=== PATIENT | female | born 1955 | race African-American/Black ===

== ENCOUNTER 2019-06-17 07:57 | Emergency (ER) | payer OTHER ==
--- OUTSIDE RECORDS SUMMARY | 2019-06-17 07:59 | XMS REPORT ---
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
[2019-06-17] MEDS ORDERED: HYDROCODONE/APAP 7.5/325 MG TAB ONE (08:29)
--- NOTE | 2019-06-17 10:57 | ER ---
Nurse's Notes [facility] Name: Sammi Lakhani Age: 64 yrs Sex: Female : 1955 Arrival Date: 06/17/2019 Time: 08:00 Bed 7 Private MD: Kylie Fuentes Diagnosis: Pain in left knee Presentation: 06/17 08:02 Presenting complaint: Patient states: "I hurt my left leg last night around 8pm moving aa5 the bleachers in the gym at my work". Pt reports she works at the [employer]. Pt c/o pain to posterior aspect of left knee. 08:02 Transition of care: patient was not received from another setting of care. Onset of aa5 symptoms was June 16, 2019. Risk Assessment: Do you want to hurt yourself or someone else? Patient reports no desire to harm self or others. Initial Sepsis Screen: Does the patient meet any 2 criteria? No. Patient's initial sepsis screen is negative. Does the patient have a suspected source of infection? No. Patient's initial sepsis screen is negative. Care prior to arrival: None. 08:02 Acuity: PIPE 4 aa5 08:02 Method Of Arrival: Wheelchair aa5 Historical: - Allergies: 08:02 No Known Allergies; aa5 - Home Meds: 08:02 None [Active]; aa5 - PMHx: 08:02 None; aa5 - PSHx: 08:02 cyst removed; aa5 - Immunization history:: Flu vaccine is up to date. - Coronavirus screen:: The patient has NOT traveled to [place], [place], or [place] in the past 14 days. The patient has NOT had contact with known/suspected case of Coronavirus?. - Social history:: Smoking status: Patient denies any tobacco usage or history of. - Ebola Screening: : No symptoms or risks identified at this time. Screenin:02 Abuse screen: Denies threats or abuse. Nutritional screening: No deficits noted. tw2 Tuberculosis screening: No symptoms or risk factors identified. Fall Risk None identified. Assessment: 08:05 General: Appears in no apparent distress. slender, well groomed, Behavior is calm, tw2 cooperative, appropriate for age. Pain:. 08:05 Neuro: Level of Consciousness is awake, alert, obeys commands, Oriented to person, tw2 place, time, situation. Cardiovascular: Patient's skin is warm and dry. Respiratory: Airway is patent Respiratory effort is even, unlabored, Respiratory pattern is regular, symmetrical, Breath sounds are clear bilaterally. 08:05 GI: No signs and/or symptoms were reported involving the gastrointestinal system. : tw2 No signs and/or symptoms were reported regarding the genitourinary system. EENT: No signs and/or symptoms were reported regarding the EENT system. Derm: No signs and/or symptoms reported regarding the dermatologic system. Musculoskeletal: Reports pain in left leg. 08:34 Reassessment: xray at bedside at this time. tw2 09:13 Reassessment: Patient appears in no apparent distress at this time. No changes from tw2 previously documented assessment. Patient and/or family updated on plan of care and expected duration. Pain level reassessed. Patient is alert, oriented x 3, equal unlabored respirations, skin warm/dry/pink. 11:38 Reassessment: Patient appears in no apparent distress at this time. No changes from tw2 previously documented assessment. Patient and/or family updated on plan of care and expected duration. Pain level reassessed. Patient is alert, oriented x 3, equal unlabored respirations, skin warm/dry/pink. Vital Signs: 08:10 BP 133 / 80; Pulse 82; Resp 16 S; Temp 97.9(TE); Pulse Ox 99% on R/A; Weight 76.2 kg aa5 (R); Height 5 ft. 6 in. (167.64 cm) (R); Pain 8/10; 09:13 BP 131 / 75; Pulse 51; Resp 17; Pulse Ox 98% on R/A; tw2 10:14 BP 109 / 70; Pulse 49; Resp 17; Pulse Ox 98% on R/A; tw2 08:10 Body Mass Index 27.12 (76.20 kg, 167.64 cm) aa5 ED Course: 08:00 Patient arrived in ED. mr 08:00 Kylie Fuentes MD is Private Physician. mr 08:02 Arm band placed on. aa5 08:03 Bed in low position. Adult w/ patient. tw2 08:05 [facility]C [facility]. snw 08:05 Tawanda Jones MD is Attending Physician. snw 08:12 Triage completed. aa5 08:15 Waleska Mares, RN is Primary Nurse. tw2 08:40 Ultrasound completed. Patient tolerated well. sg3 08:45 Knee Right 3 View XRAY In Process Unspecified. EDMS 09:08 US Extremity Venous Unilateral Ltd In Process Unspecified. EDMS 10:56 Shashank Cormier MD is Referral Physician. snw 11:38 No provider procedures requiring assistance completed. Patient did not have IV access tw2 during this emergency room visit. Administered Medications: 08:29 Drug: Corinne (7.5 mg-325 mg) 1 tabs {Note: rass 0.} Route: PO; tw2 11:00 Follow up: Response: No adverse reaction; Pain is unchanged, physician notified; RASS: tw2 Alert and Calm (0) Outcome: 10:56 Discharge ordered by . snw 11:38 Discharged to home via wheelchair, with family. tw2 11:38 Condition: stable 11:38 Discharge instructions given to patient, family, Instructed on discharge instructions, follow up and referral plans. no drinking with medication, no driving heavy equipment, medication usage, safety practices, Demonstrated understanding of instructions, follow-up care, medications, Prescriptions given X 1. 11:38 Patient left the ED. tw2 Signatures: Dispatcher [employer] EDWI Nayely Larry, CAMPAIGN DEVELOPER-C CAMPAIGN DEVELOPER-Csnw Keyanna Souza, Yumiko RN RN aa5 Waleska Mares, RN RN tw2 Sandi Herrmann sg3 Corrections: (The following items were deleted from the chart) 08:37 08:05 General: Appears in no apparent distress. slender, well groomed, Behavior is tw2 calm, cooperative, appropriate for age, tw2
--- NOTE | 2019-06-17 10:57 | EDPHYS ---
Physician Documentation [facility] Name: Sammi Lakhani Age: 64 yrs Sex: Female : 1955 Arrival Date: 06/17/2019 Time: 08:00 Bed 7 Private MD: Kylie Fuentes ED Physician Tawanda Jones HPI: 06/17 09:15 This 64 yrs old Black Female presents to ER via Wheelchair with complaints of Leg Pain. snw 09:15 The patient presents with decreased range of motion, an injury, pain, swelling, snw tenderness. The complaints affect the posterior aspect of left knee. Context: The problem was sustained at work, resulted from possible hyperextension, the patient can partially bear weight, Problem is a result from a previous injury: No. Onset: The symptoms/episode began/occurred suddenly, yesterday. Associated signs and symptoms: The patient has no apparent associated signs or symptoms. Treatment prior to arrival includes: icing the affected extremity, applying pressure to the affected area. Severity of symptoms: At their worst the symptoms were moderate, severe. The patient has not experienced similar symptoms in the past. The patient has not recently seen a physician. Historical: - Allergies: 08:02 No Known Allergies; aa5 - Home Meds: 08:02 None [Active]; aa5 - PMHx: 08:02 None; aa5 - PSHx: 08:02 cyst removed; aa5 - Immunization history:: Flu vaccine is up to date. - Coronavirus screen:: The patient has NOT traveled to [place], [place], or [place] in the past 14 days. The patient has NOT had contact with known/suspected case of Coronavirus?. - Social history:: Smoking status: Patient denies any tobacco usage or history of. - Ebola Screening: : No symptoms or risks identified at this time. ROS: 09:14 Constitutional: Negative for fever, chills, and weight loss, Eyes: Negative for injury, snw pain, redness, and discharge, ENT: Negative for injury, pain, and discharge, Neck: Negative for injury, pain, and swelling, Cardiovascular: Negative for chest pain, palpitations, and edema, Respiratory: Negative for shortness of breath, cough, wheezing, and pleuritic chest pain, Abdomen/GI: Negative for abdominal pain, nausea, vomiting, diarrhea, and constipation, Back: Negative for injury and pain, : Negative for injury, bleeding, discharge, and swelling, Skin: Negative for injury, rash, and discoloration, Neuro: Negative for headache, weakness, numbness, tingling, and seizure. 09:14 MS/extremity: Positive for decreased range of motion, pain, swelling, tenderness, of the left leg. Exam: 09:13 Constitutional: This is a well developed, well nourished patient who is awake, alert, snw and in no acute distress. Head/Face: Normocephalic, atraumatic. Eyes: Pupils equal round and reactive to light, extra-ocular motions intact. Lids and lashes normal. Conjunctiva and sclera are non-icteric and not injected. Cornea within normal limits. Periorbital areas with no swelling, redness, or edema. ENT: Nares patent. No nasal discharge, no septal abnormalities noted. Tympanic membranes are normal and external auditory canals are clear. Oropharynx with no redness, swelling, or masses, exudates, or evidence of obstruction, uvula midline. Mucous membranes moist. Neck: Trachea midline, no thyromegaly or masses palpated, and no cervical lymphadenopathy. Supple, full range of motion without nuchal rigidity, or vertebral point tenderness. No Meningismus. Chest/axilla: Normal chest wall appearance and motion. Nontender with no deformity. No lesions are appreciated. Cardiovascular: Regular rate and rhythm with a normal S1 and S2. No gallops, murmurs, or rubs. Normal PMI, no JVD. No pulse deficits. Respiratory: Lungs have equal breath sounds bilaterally, clear to auscultation and percussion. No rales, rhonchi or wheezes noted. No increased work of breathing, no retractions or nasal flaring. Abdomen/GI: Soft, non-tender, with normal bowel sounds. No distension or tympany. No guarding or rebound. No evidence of tenderness throughout. Back: No spinal tenderness. No costovertebral tenderness. Full range of motion. Skin: Warm, dry with normal turgor. Normal color with no rashes, no lesions, and no evidence of cellulitis. Neuro: Awake and alert, GCS 15, oriented to person, place, time, and situation. Cranial nerves II-XII grossly intact. Motor strength 5/5 in all extremities. Sensory grossly intact. Cerebellar exam normal. Normal gait. Psych: Awake, alert, with orientation to person, place and time. Behavior, mood, and affect are within normal limits. 09:13 Musculoskeletal/extremity: ROM: limited active range of motion due to pain, limited passive range of motion due to pain, Circulation is intact in all extremities. Sensation intact. left knee. Vital Signs: 08:10 BP 133 / 80; Pulse 82; Resp 16 S; Temp 97.9(TE); Pulse Ox 99% on R/A; Weight 76.2 kg aa5 (R); Height 5 ft. 6 in. (167.64 cm) (R); Pain 8/10; 09:13 BP 131 / 75; Pulse 51; Resp 17; Pulse Ox 98% on R/A; tw2 10:14 BP 109 / 70; Pulse 49; Resp 17; Pulse Ox 98% on R/A; tw2 08:10 Body Mass Index 27.12 (76.20 kg, 167.64 cm) aa5 MDM: 08:14 Patient medically screened. snw 11:00 Data reviewed: vital signs, nurses notes. Data interpreted: Pulse oximetry: on room air snw is 98 %. Interpretation: normal. Counseling: I had a detailed discussion with the patient and/or guardian regarding: the historical points, exam findings, and any diagnostic results supporting the discharge/admit diagnosis, radiology results, the need for outpatient follow up, to return to the emergency department if symptoms worsen or persist or if there are any questions or concerns that arise at home. Special discussion: Based on the history and exam findings, there is no indication for further emergent testing or inpatient evaluation. I discussed with the patient/guardian the need to see the orthopedic surgeon for further evaluation of the symptoms. I discussed with the patient/guardian the need to see the primary care provider for further evaluation of the symptoms. 06/17 08:19 Order name: Knee Right 3 View XRAY snw 06/17 08:19 Order name: US Extremity Venous Unilateral Ltd; Complete Time: 11:08 snw 06/17 11:07 Order name: Knee Immobilizer; Complete Time: 11:35 snw Administered Medications: 08:29 Drug: [place] (7.5 mg-325 mg) 1 tabs {Note: rass 0.} Route: PO; tw2 11:00 Follow up: Response: No adverse reaction; Pain is unchanged, physician notified; RASS: tw2 Alert and Calm (0) Disposition: 06/17/19 10:56 Discharged to Home. Impression: Pain in left knee. - Condition is Stable. - Discharge Instructions: Joint Pain, Knee Immobilizer, Musculoskeletal Pain, Knee Pain, Cryotherapy, [id number], Heat Therapy. - Prescriptions for Mobic 7.5 mg Oral Tablet - take 1 tablet by ORAL route 2 times per day take with food; 20 tablet. - Medication Reconciliation Form, Thank You Letter, Antibiotic Education, Prescription Opioid Use, Work release form form. - Follow up: Shashank Cormier MD; When: 2 - 3 days; Reason: Recheck today's complaints, Continuance of care. Addendum: 06/19/2019 07:03 Co-signature as Attending Physician, Tawanda Jones MD I agree with the assessment and c buchanan plan of care. Signatures: Dispatcher [employer] EDKS Tawanda Jones MD MD cha Therrien, Shelly, PERINATAL NURSE-C PERINATAL NURSE-Csnw Yumiko Perla, RN RN aa5 Waleska Mares RN RN tw2 Corrections: (The following items were deleted from the chart) 06/17 09:15 09:13 Musculoskeletal/extremity: ROM: limited active range of motion due to pain, snw limited passive range of motion due to pain, Circulation is intact in all extremities. Sensation intact. snw 11:38 10:56 06/17/2019 10:56 Discharged to Home. Impression: Pain in left knee. Condition is tw2 Stable. Forms are Work release form, Medication Reconciliation Form, Thank You Letter, Antibiotic Education, Prescription Opioid Use. Follow up: Shashank Cormier; When: 2 - 3 days; Reason: Recheck today's complaints, Continuance of care. snw
--- NOTE | 2019-06-17 11:12 | RAD REPORT ---
EXAM DESCRIPTION: US - Extremity Venous Uni Ltd - 06/17/2019 9:07 am CLINICAL HISTORY: PAIN Leg swelling and edema. COMPARISON: EXT VENOUS UNI LTD dated 12/12/2013 FINDINGS: Left lower extremity venous system was interrogated with Doppler technique. Normal flow, c ompressibility and augmentation was noted. There is no DVT present. IMPRESSION: No evidence of left lower extremity deep venous thrombosis.
[2019-06-17 11:52] VITALS: TEMP 97.9
[2019-06-17 11:54] VITALS: O2SAT 98
[2019-06-17 11:55] VITALS: BP 109/70
--- NOTE | 2019-06-17 11:59 | RAD REPORT ---
EXAM DESCRIPTION: RAD - Knee Right 3 View - 06/17/2019 8:47 am CLINICAL HISTORY: PAIN COMPARISON: No comparisons FINDINGS: Osteoarthritis is present greatest in the medial joint compartment. Trace suprapatellar nicki int fluid. No fracture or dislocation.
== END 2019-06-17 11:38 | disposition home or self-care (01) ==
LOC: ER 07:57
DX: M25.562 Pain in left knee (principal)
CPT/HCPCS: 93971; 99283